=== PATIENT | female | born 1995 | race Caucasian/White ===

== ENCOUNTER 2018-01-02 15:56 | Emergency (ER) | payer SELFPAY ==
[2018-01-02 16:26] VITALS: TEMP 99
--- NOTE | 2018-01-02 17:07 | RAD ---
EXAM DESCRIPTION: Chest,2 Views CLINICAL HISTORY:22 years Female, fall 1 wk ago c pain and sob today Comparison: None FINDINGS: No focal lung consolidation. No pleural effusion. No pneumothorax. Cardiac and mediastinal silhouette is unremarkable. No acute osseous abnormality. Soft tissues are unremarkable. IMPRESSION: No acute findings. No focal lung consolidation. Electronically signed by: Doe Broussard MD 01/02/2018 5:06 PM CDT
--- NOTE | 2018-01-02 17:09 | RAD ---
EXAM DESCRIPTION: Abdomen Flat Upright CLINICAL HISTORY: 22 years, Female, rlq pain today COMPARISON: None. FINDINGS: Nonobstructive bowel gas pattern. No abnormal calcifications. No acute osseous abnormality. IMPRESSION: No acute abnormality. Radiolucent structure projects over the pelvis, likely an intra vaginal tampon Electronically signed by: Doe Broussard MD 01/02/2018 5:08 PM CDT
--- NOTE | 2018-01-02 18:29 | CT ---
EXAM DESCRIPTION: Abdomen/Pelvis w/Contrast CLINICAL HISTORY: 22 years Female rlq pain leukocytosis COMPARISON: None. TECHNIQUE: Contiguous axial images obtained through the abdomen and pelvis following IV contrast. Reformatted images obtained. This exam was performed according to our department optimization program which includes automated exposure control, adjustment of the mA and/or kv according to patient size and/or use of iterative reconstruction technique. FINDINGS: Enlarged liver measuring 20 cm. The spleen and pancreas appear unremarkable. No adrenal masses. The kidneys appear unremarkable. No hydronephrosis. The gallbladder is visualized. No aneurysmal dilatation of the aorta. No bowel obstruction. The appendix is unremarkable. No significant free fluid noted. There is a right ovarian cyst measuring 4.4 x 3.2 cm. This is almost certainly benign and no follow-up is recommended. Scattered small mesenteric lymph nodes are noted. Colon is incompletely distended. IMPRESSION: No evidence of appendicitis Right ovarian cyst measuring 4.4 cm. Findings are almost certainly benign and no follow-up is recommended Electronically signed by: Jinny Stevens MD 01/02/2018 6:28 PM CDT
[2018-01-02 18:44] VITALS: O2SAT 97
[2018-01-02] MEDS ORDERED: metroNIDAZOLE IV PREMIX 500MG 500 MG in PREMIX BAG 1 BAG IVPB ONE (18:47)
[2018-01-02] MEDS ORDERED: CIPROFLOXACIN 500 MG TAB PO ONE (18:47)
--- NOTE | 2018-01-02 18:52 | ED.PDOC ---
History of Present Illness - General Chief Complaint: Abdominal Pain Stated Complaint: abdominal pain Time Seen by Provider: 01/02/18 16:01 Source: patient Exam Limitations: no limitations - History of Present Illness Initial Comments: The patient is a 22-year-old female presenting to the emergency room secondary to right lower quadrant pain starting about 8 hours prior to arrival. She has had some nausea but no vomiting. No diarrhea. No definite fevers. Pain really is localized to the right lower quadrant. There is no definite rebound. No definite peritonitis at this time. No palpable mass. No trauma to that area. She is not a vaginal discharge. No dysuria. No recent infections. Timing/Duration: getting worse Severity: moderate Improving Factors: nothing Worsening Factors: nothing Associated Symptoms: loss of appetite, nausea/vomiting Allergies/Adverse Reactions: Allergies Penicillins Allergy (Unverified 04/17/13 21:05) Hydrocodone Adverse Reaction (Unverified 04/17/13 21:05) Home Medications: Ambulatory Orders Naproxen [Naprosyn] 500 mg PO BID PRN #10 tab 01/29/14 Ciprofloxacin [Cipro] 500 mg PO BID #14 tab 01/02/18 Metronidazole 500 mg PO TID #20 tab 01/02/18 Review of Systems - Review of Systems Constitutional: States: no symptoms reported EENTM: States: no symptoms reported Respiratory: States: no symptoms reported Cardiology: States: no symptoms reported Gastrointestinal/Abdominal: States: see HPI Genitourinary: States: no symptoms reported Musculoskeletal: States: no symptoms reported Skin: States: no symptoms reported Neurological: States: no symptoms reported All other Systems: No Change from Baseline Past Medical History (General) - Patient Medical History Hx Asthma: Yes Surgical History: no surgical history - Female History Hx Last Menstrual Period: 01/12/14 Patient : No Family Medical History - Family History Father Age (years): 36 Living Status: Still Living Hx Family;Other: kidney stones Physical Exam - Physical Exam General Appearance: Alert, Comfortable, No apparent distress Eye Exam: bilateral normal Ears, Nose, Throat: normal ENT inspection, normal pharynx Neck: full range of motion, supple Respiratory: lungs clear, normal breath sounds, no respiratory distress, no accessory muscle use Cardiovascular/Chest: normal peripheral pulses, regular rate, rhythm, no edema Peripheral Pulses: radial,right: 2+, radial,left: 2+, dorsalis pedis,right: 2+, dorsalis pedis,left: 2+ Gastrointestinal/Abdominal: soft, other - see history of present illness Rectal Exam: deferred Back Exam: normal inspection, no CVA tenderness, no vertebral tenderness Extremity: normal range of motion, non-tender, normal inspection, no pedal edema , normal capillary refill 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, alert, normal mood/affect, oriented x 3 Skin Exam: normal color Comments: Vital Signs - 24 hr 01/02/18 01/02/18 01/02/18 16:10 16:34 17:23 Temperature 99.0 F Pulse Rate [ 82 70 left brachial] Respiratory 18 20 18 Rate Blood Pressure 140/95 114/76 [left brachial] O2 Sat by Pulse 98 98 Oximetry 01/02/18 18:43 Temperature Pulse Rate [ 67 left brachial] Respiratory 16 Rate Blood Pressure 114/77 [left brachial] O2 Sat by Pulse 97 Oximetry Progress - Progress Progress: 01/02/18 18:52 the patient is a 22-year-old female presenting to the emergency room secondary to right lower quadrant pain of a fairly short duration with associated leukocytosis. CT scan is negative for any definitive acute pathology though she does have a benign-appearing ovarian cyst on that side. She does have a mild elevation of her temperature as well. For these reasons the patient is going to be treated with broad-spectrum antibiotics of ciprofloxacin and metronidazole for the next 7 days. It is possible that this is the very early start of a mild appendicitis that is not yet diagnosable by CT scan. Certainly the location is concerning for that. If that is the case, then hopefully placing the patient on antibiotics early Will treat it adequately and avoid the need for surgery. If her symptoms worsen rather than improve over the next few days then she needs to be reevaluated. ER warnings were given. White blood cell count was 13,000 today. she needs to follow-up with her primary care doctor otherwise early next week. - Results/Orders Results/Orders: chest x-ray and abdominal x-ray showed no obvious acute pathology. CT scan abdomen and pelvis shows no definite evidence of any appendicitis. She does have a 4.4 cm benign appearing right ovarian cyst. Laboratory Results - last 24 hr 01/02/18 01/02/18 01/02/18 16:30 16:30 16:37 WBC 13.4 H RBC 4.29 Hgb 13.5 Hct 39.7 MCV 92.6 MCH 31.5 H MCHC 34.0 RDW 12.4 Plt Count 284 MPV 7.7 Absolute Neuts (auto) 11.70 H Absolute Lymphs (auto) 1.20 Absolute Monos (auto) 0.40 Absolute Eos (auto) 0.00 Absolute Basos (auto) 0.00 Neutrophils % 87.1 H Lymphocytes % 9.1 L Monocytes % 3.4 Eosinophils % 0.1 L Basophils % 0.3 Sodium Potassium Chloride Carbon Dioxide Anion Gap BUN Creatinine BUN/Creatinine Ratio Random Glucose Serum Osmolality Calcium Total Bilirubin AST ALT Alkaline Phosphatase Serum Total Protein Albumin Globulin Albumin/Globulin Ratio Amylase Lipase Urine Color Yellow Urine Appearance Clear Urine pH 6.5 Ur Specific [employer] 1.010 Urine Protein Negative Urine Glucose (UA) Negative Urine Ketones Negative Urine Blood Negative Urine Nitrite Negative Urine Bilirubin Negative Urine Urobilinogen 0.2 Ur Leukocyte Esterase Negative Urine RBC 0 Urine WBC 0 Ur Epithelial Cells 5-10 Urine Bacteria Rare Urine HCG, Qual Negative 01/02/18 16:37 WBC RBC Hgb Hct MCV MCH MCHC RDW Plt Count MPV Absolute Neuts (auto) Absolute Lymphs (auto) Absolute Monos (auto) Absolute Eos (auto) Absolute Basos (auto) Neutrophils % Lymphocytes % Monocytes % Eosinophils % Basophils % Sodium 132 L Potassium 3.9 Chloride 101 Carbon Dioxide 25 Anion Gap 9.9 L BUN 11 Creatinine 0.65 BUN/Creatinine Ratio 16.9 Random Glucose 99 Serum Osmolality 263.9 L Calcium 9.2 Total Bilirubin 0.8 AST 15 ALT 12 Alkaline Phosphatase 40 L Serum Total Protein 7.3 Albumin 4.2 Globulin 3.1 Albumin/Globulin Ratio 1.4 Amylase 56 Lipase 23 Urine Color Urine Appearance Urine pH Ur Specific [employer] Urine Protein Urine Glucose (UA) Urine Ketones Urine Blood Urine Nitrite Urine Bilirubin Urine Urobilinogen Ur Leukocyte Esterase Urine RBC Urine WBC Ur Epithelial Cells Urine Bacteria Urine HCG, Qual Departure - Departure Clinical Impression: Leukocytosis Qualifiers: Leukocytosis type: unspecified Qualified Code(s): D72.829 - Elevated white blood cell count, unspecified Abdominal pain Qualifiers: Abdominal location: right lower quadrant Qualified Code(s): R10.31 - Right lower quadrant pain Disposition: Discharge to Home or Self Care Condition: Fair Departure Forms: ED Discharge - Pt. Copy, Patient Portal Self Enrollment Diet: regular diet Activity: increase activity as tolerated Prescriptions: Ciprofloxacin [Cipro] 500 mg PO BID #14 tab Metronidazole 500 mg PO TID #20 tab Home Medications: Ambulatory Orders Naproxen [Naprosyn] 500 mg PO BID PRN #10 tab 01/29/14 Ciprofloxacin [Cipro] 500 mg PO BID #14 tab 01/02/18 Metronidazole 500 mg PO TID #20 tab 01/02/18 Additional Instructions: the patient is a 22-year-old female presenting to the emergency room secondary to right lower quadrant pain of a fairly short duration with associated leukocytosis. CT scan is negative for any definitive acute pathology though she does have a benign-appearing ovarian cyst on that side. She does have a mild elevation of her temperature as well. For these reasons the patient is going to be treated with broad-spectrum antibiotics of ciprofloxacin and metronidazole for the next 7 days. It is possible that this is the very early start of a mild appendicitis that is not yet diagnosable by CT scan. Certainly the location is concerning for that. If that is the case, then hopefully placing the patient on antibiotics early Will treat it adequately and avoid the need for surgery. If her symptoms worsen rather than improve over the next few days then she needs to be reevaluated. ER warnings were given. White blood cell count was 13,000 today. she needs to follow-up with her primary care doctor otherwise early next week.
[2018-01-02] MEDS ORDERED: metroNIDAZOLE IV PREMIX 500MG 100 ML IVPB ONE (18:56)
[2018-01-02 20:11] VITALS: BP 114/70
== END 2018-01-02 20:05 | disposition home or self-care (01) ==
LOC: ER 15:56
DX: R10.31 Right lower quadrant pain (principal); D72.829 Elevated white blood cell count, unspecified; R11.0 Nausea; Z88.5 Allergy status to narcotic agent; Z88.0 Allergy status to penicillin
CPT/HCPCS: 36415; 71046; 74019; 74177; 80053; 81001; 81025; 82150; 83690; 85025; J3490